=== PATIENT | female | born 1985 | race Caucasian/White ===

== ENCOUNTER 2016-11-26 18:42 | Observation (INO) ==
[2016-11-26 19:21] LABS: Bilirubin,Urine Negative (Negative); Blood,Urine Negative (Negative); Clarity,Urine Cloudy (Clear); Color,Urine Yellow (Yellow); Glucose,Urine (UA) Normal (Normal); Ketones,Urine Trace mg/dL (Negative); Leukocyte Esterase,Urine Large (Negative); Nitrite,Urine Negative (Negative); Protein,Urine Negative (Neg-Trace); Specific Gravity,Urine 1.014 (1.010-1.025); Urobilinogen,Urine Normal (Normal)
[2016-11-26 19:24] LABS: Bacteria,Urine Moderate per hpf (None-Few); Hyaline Casts,Urine None Seen per lpf (None-Few); Squamous Epithelial Cell,Urine Many per lpf (None-Few)
--- NOTE | 2016-11-26 19:55 | OB/GYN Progress Note ---
Date of Encounter: 11/26/16 Time of Encounter: 19:48 - Assessment and Plan (1) 22 weeks gestation of Current Visit: Yes Status: Acute continue routine care continue close follow up with [facility] high risk (2) UTI (urinary tract infection) during Current Visit: Yes Status: Acute start [id number] (3) DVT (deep vein thrombosis) in Current Visit: No Status: Acute recommend to not skip doses of anticoagulant continue close follow up with [facility] high risk (4) Pulmonary embolism affecting in first trimester Current Visit: No Status: Acute recommend pt dose not miss doses of anticoagulant close follow up with [facility] Subjective - Subjective Principal diagnosis: UTI Interval history: 31 yo F at 22weeks presents c/o painful urination which started yesterday morning and has gotten worse since. Pt states that driving home today from work she started getting lightheaded and dizzy with some blurred vision that lasted a few minutes and have now subsided. has been complicated by DVT and PE during this in which she follows with [facility] her next appointment is in 3 weeks. Pt states she has been eating healthy and drinking water. Pt is supposed to be taking lovenox BID, she states she did skip her last two doses. Pt denies urinary frequency, urgency, hesitancy, vaginal discharge or bleeding. She denies current headache, change in vision, CP, palpitations, SOB, N/V, abdominal pain/cramping, LE edema, calf pain or swelling. Antepartum ROS: other (burning with urination) Objective - Vital Signs Vital Signs: Intake and Output 11/26/16 11/26/16 11/26/16 07:59 15:59 23:59 Other: Weight 190 kg Patient Weight 11/26/16 23:59 Weight 190 kg - Exam FHR: auscultation normal Auscultation: bilateral: normal Abdomen: Present: soft (obese), gravid Uterus: Present: normal - Labs Labs: Abnormal lab results Urine Clarity Cloudy (Clear) A 11/26/16 19:09 Urine Ketones Trace mg/dL (Negative) H 11/26/16 19:09 Ur Leukocyte Esterase Large (Negative) H 11/26/16 19:09 Urine Microscopic RBC 5-15 per hpf (0-3) H 11/26/16 19:09 Urine Microscopic WBC 5-15 per hpf (0-3) H 11/26/16 19:09 Ur Squamous Epith Cells Many per lpf (None-Few) H 11/26/16 19:09 Urine Bacteria Moderate per hpf (None-Few) H 11/26/16 19:09 Ur Culture Indicated? YES (NO) A 11/26/16 19:09
--- NOTE | 2016-11-26 20:05 | Discharge Summary ---
Date of Encounter: 11/27/16 Time of Encounter: 20:05 - Discharge Diagnosis (1) 22 weeks gestation of Priority: Secondary Status: Acute (2) UTI (urinary tract infection) during Priority: Primary Status: Acute (3) DVT (deep vein thrombosis) in Priority: Secondary Status: Acute (4) Pulmonary embolism affecting in first trimester Priority: Secondary Status: Acute - Discharge Medications Prescriptions: Nitrofurantoin (BID) [Macrobid] 100 mg PO BID #14 capsule Home Medications: Vit Calc,Iron,Folic [ Vitamins] 1 each PO DAILY 09/03/16 [ History] Triamcinolone Acet 0.1% CRM [Kenalog] 453.6 gm TP PRN PRN #1 tube 09/28/16 [Rx] Enoxaparin [Lovenox] 100 mg SQ Q12HR 10/08/16 [History] Nitrofurantoin (BID) [Macrobid] 100 mg PO BID #14 capsule 11/26/16 [Rx] Allergies/Adverse Reactions: Allergies No Known Allergies Allergy (Verified 09/03/16 13:10) Data Procedures and tests throughout hospitalization: Laboratory Tests 11/26/16 19:09 Urine Color Yellow Urine Clarity Cloudy A Urine pH 6.0 Ur Specific [place] 1.014 Urine Protein Negative Urine Glucose (UA) Normal Urine Ketones Trace H Urine Blood Negative Urine Nitrite Negative Urine Bilirubin Negative Urine Urobilinogen Normal Ur Leukocyte Esterase Large H Urine Microscopic RBC 5-15 H Urine Microscopic WBC 5-15 H Ur Squamous Epith Cells Many H Urine Bacteria Moderate H Hyaline Casts None Seen Ur Culture Indicated? YES A Labs on day of discharge: Labs from last 24 hours 11/26/16 19:09 Urine Color Yellow Urine Clarity Cloudy A Urine pH 6.0 Ur Specific [place] 1.014 Urine Protein Negative Urine Glucose (UA) Normal Urine Ketones Trace H Urine Blood Negative Urine Nitrite Negative Urine Bilirubin Negative Urine Urobilinogen Normal Ur Leukocyte Esterase Large H Urine Microscopic RBC 5-15 H Urine Microscopic WBC 5-15 H Ur Squamous Epith Cells Many H Urine Bacteria Moderate H Hyaline Casts None Seen Ur Culture Indicated? YES A Date of admission: 11/26/16 18:42 Discharging clinician: Ruth Ann Bush Anticipated date of discharge: 11/26/16 - Patient Status Disposition: Home, Self-Care Condition: Good Functional capacity at discharge: independent ambulation Overall status at discharge: patient is back to baseline - Discharge Instructions Additional Instructions: LABOR AND DELIVERY DISCHARGE INSTRUCTIONS Signs and Symptoms to be Reported to your Doctor Immediately: * Sudden gush, continuous or intermittent lead of fluid from vagina (note the time of gush and color of fluid) * Onset of bright red vaginal bleeding with or without pain (if you had a vaginal exam during this visit you may notice some dark red spotting. This is normal.) * Lower abdominal cramping or backache that is premenstrual-like feeling. * More than 6 contractions in one hour. * Burning during urination, having to urinate more frequently or pain in your mid-back. * A change in the baby's activity. This could be an increase or decrease in activity. * Severe headache which does not go away with tylenol. * Sudden swelling in the face, hands, arms and/or legs. * Upper abdominal pain - sometimes associated with heartburn or nausea and is not relieved by Maalox, Mylanta or Tums. * Dizziness or blurred vision or visual disturbances (seeing stars/lights). * Kick Counts One hour after a meal, lay down on one side in a quiet place. Count the number of abrahan the baby moves during an hour. If less than 6 movements, notify your physician. Diet: *Force fluids - 8-10 tall glasses of fluid per day. May include popsicles and jello. *Limit caffeine - this includes chocolate, coffee, tea, any soft drink containing such as all sarah, Eliazar Yellow and Mountain Dew - Diet and Activity Activity: increase activity as tolerated Diet: advance to your usual diet Hospital Course VALIDATION INTERN Time Attestation: Total time spent providing and/or coordinating discharge services: Exam - Constitutional General appearance IM: A&O X 3, no acute distress, obese - Respiratory Respiratory exam: Present: CTAB. Absent: respiratory distress - Cardiovascular Cardiovascular exam IM: Present: RRR, +S1, +S2. Absent: irregular rhythm - GI/Abdominal GI/Abdominal exam IM: normal bowel sounds, soft, no peritoneal signs - Extremities Exam Extremities exam IM: Present: pedal edema (trace), warm, radial pulses palpable and symetrical. Absent: calf tenderness - Neurological Exam Neurological exam: CN II-XII intact, oriented X3, reflexes normal, no focal deficits - VTE Reasons for not Prescribing Prophylaxis: Treatment not Indicated - Low risk for VTE - Attending Attestation Dr. Farida Beauchamp DO
== END 2016-11-26 20:07 | disposition home or self-care (01) ==
LOC: 1NENULAB

== ENCOUNTER 2021-02-06 06:00 | Inpatient (IN) ==
[2021-02-06] MEDS ORDERED: Famotidine 20 MG/2 ML VIAL IVP PRN (06:07)
[2021-02-06] MEDS ORDERED: Naloxone 0.4 MG/ML INJ IVP PRN ×2 (06:07→08:20)
[2021-02-06] MEDS ORDERED: Ondansetron 4 MG/2 ML VIAL IVP PRN ×2 (06:07→08:20)
[2021-02-06] MEDS ORDERED: Lidocaine 1% 20 ML MDV INFILT PRN (06:07)
[2021-02-06] MEDS ORDERED: miSOPROStoL 25 MCG TABLET VG PRN (06:07)
[2021-02-06] MEDS ORDERED: *HR* Nalbuphine 10 MG/ML AMPUL IV PRN (06:07)
[2021-02-06] MEDS ORDERED: Metoclopramide 10 MG/2 ML VIAL IVP PRN (06:07)
[2021-02-06 07:13] LABS: Basophils # 0.1 K/mcL (0.0-0.2); Basophils % 0.4 %; Eosinophils # 0.1 K/mcL (0.0-0.6); Eosinophils % 0.8 %; Hematocrit 36.3 % (35.3-44.9); Hemoglobin 11.6 g/dL (11.5-15.4); Immature Granulocytes % 0.9 % (0-4); Lymphocytes % 15.6 %; Mean Corpuscular Hemoglobin 28.5 pg (28.0-33.3); Mean Corpuscular Volume 89.2 fL (83.0-100.0); Monocytes # 0.8 K/mcL (0.0-1.3); Monocytes % 6.4 %; Neutrophils # 9.8 K/mcL (1.6-8.9); Platelet Count 342 K/mcL (140-400); Red Blood Count 4.07 M/mcL (3.82-4.97); Red Cell Distribution Width 12.6 % (11.5-14.5); Segmented Neutrophils % 75.9 %; White Blood Count 12.9 K/mcL (4.3-11.1)
[2021-02-06] MEDS ORDERED: EPHEDrine 50 MG/ML VIAL IVP PRN (08:20)
[2021-02-06] MEDS ORDERED: Ropivacaine/PF 0.2% 20 ML VIAL EP ONE (08:20)
[2021-02-06] MEDS ORDERED: Epidural Premix (fent/bupiv) 110 ML EP SCH (08:30)
[2021-02-06] MEDS ORDERED: miSOPROStoL 25 MCG TABLET PO PRN (08:33)
[2021-02-06] MEDS ORDERED: Oxytocin 20 units/ LR 1000 mL 20 UNIT/1,000 ML BAG IVC SCH ×2 (09:00→16:28)
[2021-02-06] MEDS: Ringers Solution, Lactated 1,000 ML IVC SCH ×2 (09:00→12:04)
[2021-02-06 10:09] LABS: Amphetamine Screen,Urine Negative ng/mL (Cutoff=1000); Barbiturate Screen,Urine Negative ng/mL (Cutoff=200); Benzodiazepines Screen,Urine Negative ng/mL (Cutoff=200); Cannabinoid Screen,Urine Negative ng/mL (Cutoff = 50); Cocaine Screen,Urine Negative ng/mL (Cutoff= 300); Opiate Screen,Urine Negative ng/mL (Cutoff=300); Phencyclidine Screen,Urine Negative ng/mL (Cutoff=25)
[2021-02-06] MEDS ORDERED: Oxytocin 20 units/ LR 1000 mL 20 UNIT/1,000 ML BAG IVC ONE (16:28)
[2021-02-06] MEDS: *HR* Heparin 5,000 UNIT/ML VIAL SQ SCH (18:49)
[2021-02-07] MEDS: Acetaminophen 325 MG TABLET PO PRN ×2 (01:14→07:52)
[2021-02-07] MEDS: *HR* Heparin 5,000 UNIT/ML VIAL SQ SCH (06:30)
[2021-02-07 08:00] VITALS: BP 93/58
[2021-02-07] MEDS ORDERED: Prenatal Vit/FA 1 EACH TABLET PO SCH (09:00)
[2021-02-07] MEDS ORDERED: Aspirin Enteric Coated 81 MG Tablet PO SCH (09:00)
[2021-02-07] MEDS ORDERED: Ibuprofen 600 MG TABLET PO PRN (09:15)
== END 2021-02-07 16:06 | disposition home or self-care (01) | DRG 807 ==
LOC: 1NENULAB 06:01 → 1NENUOBS 17:20
PROVIDERS: ADMIT Obstetrics & Gynecology; ATTEND Obstetrics & Gynecology

== ENCOUNTER 2022-02-05 05:59 | Inpatient (IN) ==
[2022-02-05] MEDS ORDERED: Naloxone 0.4 MG/ML INJ IVP PRN (06:31)
[2022-02-05] MEDS ORDERED: Ondansetron 4 MG/2 ML VIAL IVP PRN (06:31)
[2022-02-05] MEDS ORDERED: Metoclopramide 10 MG/2 ML VIAL IVP PRN (06:31)
[2022-02-05] MEDS ORDERED: Famotidine 20 MG/2 ML VIAL IVP PRN (06:31)
[2022-02-05] MEDS ORDERED: Ringers Solution, Lactated 1,000 ML IVC SCH (06:45)
[2022-02-05 07:37] LABS: Influenza A PCR Negative (Negative); Influenza B PCR Negative (Negative); Resp. Syncytial Virus PCR Negative (Negative)
[2022-02-05 07:55] LABS: Basophils % 0.4 %; Eosinophils # 0.1 K/mcL (0.0-0.6); Eosinophils % 0.9 %; Hematocrit 38.1 % (35.3-44.9); Hemoglobin 12.4 g/dL (11.5-15.4); Immature Granulocytes % 0.6 % (0-4); Lymphocytes % 18.9 %; Mean Corpuscular HGB Conc 32.5 g/dL (31.6-35.5); Mean Corpuscular Hemoglobin 28.4 pg (28.0-33.3); Mean Corpuscular Volume 87.4 fL (83.0-100.0); Mean Platelet Volume 9.6 fL (9.4-12.4); Monocytes # 0.7 K/mcL (0.0-1.3); Monocytes % 6.5 %; Neutrophils # 7.7 K/mcL (1.6-8.9); Platelet Count 310 K/mcL (140-400); Red Blood Count 4.36 M/mcL (3.82-4.97); Red Cell Distribution Width 12.7 % (11.5-14.5); Segmented Neutrophils % 72.7 %; White Blood Count 10.6 K/mcL (4.3-11.1)
[2022-02-05 08:04] LABS: Amphetamine Screen,Urine Negative ng/mL (Cutoff=1000); Barbiturate Screen,Urine Negative ng/mL (Cutoff=200); Benzodiazepines Screen,Urine Negative ng/mL (Cutoff=200); Cannabinoid Screen,Urine Negative ng/mL (Cutoff = 50); Cocaine Screen,Urine Negative ng/mL (Cutoff= 300); Opiate Screen,Urine Negative ng/mL (Cutoff=300); Phencyclidine Screen,Urine Negative ng/mL (Cutoff=25)
[2022-02-05] MEDS ORDERED: miSOPROStoL 100 MCG TABLET VG SCH ×2 (09:00→13:00)
[2022-02-05] MEDS ORDERED: miSOPROStoL 100 MCG TABLET VG ONE (09:15)
[2022-02-05 09:51] LABS: SARS-CoV-2 by PCR (In House) Negative (Negative)
[2022-02-05 12:42] LABS: INR 1.1; Prothrombin Time 11.8 Seconds (9.4-12.1)
[2022-02-05 12:43] LABS: Activated Partial Thrombo Time 28.4 Seconds (26.0-36.0)
[2022-02-05] MEDS ORDERED: Oxytocin 30 UNIT/503 ML BAG IVC ONE ×2 (15:46→17:09)
[2022-02-05] MEDS ORDERED: Oxytocin 30 UNIT/503 ML BAG IVC SCH (18:17)
[2022-02-05] MEDS ORDERED: Acetaminophen 325 MG TABLET PO SCH (18:17)
[2022-02-05] MEDS ORDERED: Ondansetron ODT 4 MG TAB.RAPDIS SL PRN (18:17)
[2022-02-05] MEDS ORDERED: OXYTOCIN/RINGERS LACTATE 10 UNIT/166.6 ML BAG IVC ONE (18:17)
[2022-02-05] MEDS ORDERED: Ibuprofen 600 MG TABLET PO SCH (18:30)
[2022-02-06] MEDS ORDERED: Prenatal Vit/FA 1 EACH TABLET PO SCH (09:00)
[2022-02-08 13:28] LABS: Parvovirus B19, IgG 0.57 IV (<=0.90); Parvovirus B19, IgM 0.23 IV (<=0.90)
== END 2022-02-05 22:52 | disposition home or self-care (01) | DRG 806 ==
LOC: 1NENULAB 05:59
PROVIDERS: ADMIT Advanced Practice Midwife; ATTEND Advanced Practice Midwife